=== PATIENT | male | born 1975 | race Two or more races ===

== ENCOUNTER 2025-01-15 14:10 | Emergency (ER) | payer MEDICAID, SELFPAY ==
[2025-01-15 14:22] VITALS: BP 121/83; PULSE 68; RESP 18; TEMP 36.8; O2SAT 97
--- NOTE | 2025-01-15 14:22 | EDRME_ITS ---
Rapid Medical Screening Exam RME Arrival date/time: 01/15/25 14:10 49-year-old male presents to the emergency department for complaints of left- sided facial numbness patient reports no extremity involvement reports no headache dizziness or weakness Chief Complaint: Neuro Symptoms/Deficit
--- NOTE | 2025-01-15 14:23 | XR_ITS ---
Examination: CT brain head without contrast. 2-D sagittal coronal reconstructions Date and time of exam:January 15, 2025 1500 hours INDICATIONS: Headaches with left facial droop beginning 3:00 AM CTDI: vol (mGy):49.4 DLP: (mGycm):1054 Technique: Multiple CT axial sections of the brain have been obtained, 5 mm slice thickness. Contrast has not been administered. 2-D sagittal, coronal reconstructions have been obtained Low dose protocols were performed. One or more of the following dose reduction techniques were used; automated exposure control, adjustment of the mA and/or KV according to patient size, use of iterative reconstruction technique. Findings: No significant ventricular enlargement. Intra-axial or extra-axial hemorrhage density is not seen. No mass effect or midline shift Basal cisterns are not remarkable. Fourth ventricle is midline. Cranial vault intact. Impression: Negative for acute hemorrhage, mass effect or midline shift Given the patient's presentation, consider brain MRI MRA without contrast, stroke protocol, follow-up
[2025-01-15 14:44] LABS: Basophils # (Auto) 0.0 Thou/mm3 (0.0-0.2); Basophils % (Auto) 1 % (0-2.5); Eosinophils # (Auto) 0.2 Thou/mm3 (0.0-0.5); Eosinophils % (Auto) 3 % (0-10); Hematocrit 45.3 % (41.0-53.0); Hemoglobin 15.6 g/dL (13.5-16.0); Immature Granulocytes Auto 0.02 Thou/mm3 (0.00-0.00); Lymphocytes # (Auto) 2.5 Thou/mm3 (1.0-4.8); Lymphocytes % (Auto) 42 % (10-50); Mean Corpuscular HGB Conc 34.4 g/dl (31.0-37.0); Mean Corpuscular Hemoglobin 28.6 pg (25.0-35.0); Mean Corpuscular Volume 83 fL (80-100); Monocytes # (Auto) 0.5 Thou/mm3 (0.0-0.8); Monocytes % (Auto) 8 % (0-12); Neutrophils # (Auto) 2.8 Thou/mm3 (1.8-7.7); Neutrophils % (Auto) 46 % (37-80); Nucleated Red Blood Cell # 0.00 Thou/mm3 (0.00-0.00); Nucleated Red Blood Cell % 0 /100 WBC (0); Platelet Count 215 Thou/mm3 (140-440); RDW Standard Deviation 38.6 fL (35.1-43.9); Red Blood Count 5.46 Miln/mm3 (4.50-5.90); White Blood Count 6.0 Thou/mm3 (3.8-10.6)
[2025-01-15 15:04] LABS: Alanine Aminotransferase 20 U/L (10-49); Albumin, Serum 4.4 gm/dL (3.5-5.0); Albumin/Globulin Ratio 1.6 (1.2-2.2); Alkaline Phosphatase 91 U/L (46-116); Anion Gap 7 (7-16); Aspartate Amino Transferase 22 U/L (0-34); BUN/Creatinine Ratio 13 Ratio (12-20); Bilirubin,Total 0.8 mg/dL (0.3-1.2); Blood Urea Nitrogen 13 mg/dL (9-23); Calcium 9.7 mg/dL (8.3-10.6); Calcium (Corrected) 9.7 mg/dL (8.5-10.1); Carbon Dioxide 28.9 mMol/L (20.0-31.0); Chloride 105 mMol/L (98-107); Creatinine (Component) 1.0 mg/dL (0.6-1.3); Globulin 2.7 gm/dL (2.3-3.5); Glucose 106 mg/dL (74-106); Osmolality,Calculated 281 (275-295); Potassium 4.0 mMol/L (3.4-5.1); Sodium 141 mMol/L (136-145); Total Protein 7.1 gm/dL (5.7-8.2); eGFR > 60 See Note
[2025-01-15 16:13] LABS: INR 1.0 (0.9-1.3); Partial Thromboplastin Time 28.6 Seconds (22.0-36.0); Prothrombin Time 10.6 Seconds (9.0-12.2)
[2025-01-15 17:37] VITALS: BP 137/81; PULSE 57; RESP 16; TEMP 36.6; O2SAT 99; BMI 28.3
--- NOTE | 2025-01-15 18:06 | EDNOTE_ITS ---
Neuro Symptoms Deficit-RME/HPI General Chief Complaint: Neuro Symptoms/Deficit Stated Complaint: LT SIDE OF FACE NUMBNESS SINCE 2AM, NO DROOP Time Seen by Provider: 01/15/25 16:07 Arrival date/time: 01/15/25 14:10 RME / HPI RME / HPI Narrative: 49-year-old male presents to the emergency department for complaints of left- sided facial numbness patient reports no extremity involvement reports no headache dizziness or weakness. Onset of symptoms since 2 AM this morning. Patient did not have any sign of motor weakness. Patient is ambulatory denies any headache denies any blurry vision denies any dizziness denies any trauma or fall denies any fever. Review of Systems Review of Systems Narrative Review of Systems: Review of system reviewed and within normal limits except mentioned in HPI ED Exam Narrative Physical exam: VITAL SIGNS: Reviewed. GENERAL APPEARANCE: Alert and interactive, follows commands, no acute distress, HEAD AND FACE: Non-traumatic. No facial asymmetry, no ptosis tongue midline on protrusion ENT: PERRL, pink conjunctivitis, eyelid no trauma, Mucous membrane moist. NECK: Supple, nontender, no nuchal rigidity. CHEST: No tenderness, no crepitus, no paradoxical movement, no retractions. LUNGS: Clear, well ventilated, symmetric, no rales, no wheezing, no ronchi, no stridor, good breath sounds bilaterally. HEART: Regular rate, regular rhythm, no murmur, no gallops. ABDOMEN: Soft, positive bowel sounds, nondistended, no guarding, nontender, no rebound, no masses, RECTAL: Deferred. GENITAL: Deferred. NEUROLOGICAL: Gross motor function intact sensory function intact, Appropriate for age. MUSCULOSKELETAL: low back nontender, full range of motion. EXTREMITIES: Nontender, full range of motion. SKIN: Color pink, dry, no rash, no lacerations, no abrasions, no contusions. LYMPHATICS: Deferred. Course Quality Measures none Orders Category Date Time Status CT head/brain wo con Stat Exams 01/15/25 14:23 Completed CBC Stat Lab 01/15/25 14:31 Completed Comprehensive Metabolic Panel Stat Lab 01/15/25 14:31 Completed Partial Thromboplastin Time Stat Lab 01/15/25 14:31 Completed Prothrombin Time with INR Stat Lab 01/15/25 14:31 Completed Vital Signs Vital signs: Vital Signs Temperature 98.3 F 01/15/25 14:22 Pulse Rate 68 01/15/25 14:22 Respiratory Rate 18 01/15/25 14:22 Blood Pressure 121/83 01/15/25 14:22 Pulse Oximetry (%) 97 01/15/25 14:22 Oxygen Delivery Method Room Air 01/15/25 14:22 Neuro Symptoms / Deficit MDM Narrative MDM Narrative:: 49-year-old male presents to the emergency department for complaints of left- sided facial numbness patient reports no extremity involvement reports no headache dizziness or weakness. Onset of symptoms since 2 AM this morning. Patient did not have any sign of motor weakness. Patient is ambulatory denies any headache denies any blurry vision denies any dizziness denies any trauma or fall denies any fever. CT scan of the head came back unremarkable. Patient's laboratory workup all came back normal also. Results discussed with the patient in the [place]. Patient stable for discharge home. Patient data External records reviewed:: None Clinical information provided by:: patient Social determinants that could affect healthcare access:: none Patient has the following chronic illnesses:: None How is presenting disease/condition affected by chronic disease/condition?: no chronic disease Evaluation data The following diagnostics were reviewed and interpreted by me:: lab results and radiology exam(s) Lab and/or radiology exams considered but not ordered:: None Interpretation Summary: See results MDM Medications / Prescriptions Medications or Prescriptions considered but not ordered:: None Medication administrations:: None Consultations Consultation(s) initiated? (list below): No Diagnosis Neuro Differential Diagnosis: cerebrovascular accident, transient cerebral ischemia and other (Paresthesia) Most likely diagnosis given after review of the tests above:: Paresthesia Admission Indicated Admission indicated?: not indicated Admission Request Was there a request for admission?: No Disposition Plan Disposition Plan: Discharge Discharge Attestation Discharge Attestation: The patient was given an opportunity to ask questions and understood the discharge instructions. Discharge instructions specifically effects, indications for sooner follow up or return to the emergency department, and the expected course of current diagnosis. Patient condition: Stable Discharge Plan Plan Patient Disposition: HOME (Self Care) Discharge Disposition comment: Stable Prescriptions/Referrals Referrals: Marie Ogden MD [Primary Care Provider] - In 1 week Problem List Clinical Impression: Paresthesia Patient/Caregiver Discharge Instructions Discharge Activity: activity as tolerated Education Materials: ED Paraesthesias Additional Instructions: Thank you for the opportunity for serving you today. You are stable for discharged . You are advised to: Follow-up with your PCP in 1 to 2 days Return to ED for worsening of symptoms Increase oral fluids You can take [id number] Benadryl, melatonin, to help you with your sleep You can also take 81 mg of aspirin daily for preventative medication Print Language: Salvadorean Stand Alone Forms: Lizzy Award Info., Patient Portal Info Letter PA/JENNIFER Supervising Physician PA/JENNIFER Supervising Physician: MD Bertin
== END 2025-01-15 18:12 | disposition home or self-care (01) ==
PROVIDERS: Nurse Practitioner Primary Care; Emergency Provider Family Medicine; PCP Obstetrics & Gynecology
DX: R20.2 Paresthesia of skin (principal); R51.9 Headache, unspecified; R29.810 Facial weakness
CPT/HCPCS: 36415; 70450; 80053; 85025; 85610; 85730; 99283